=== PATIENT | female | born 1940 | race Caucasian/White ===

== ENCOUNTER 2019-12-19 09:15 | Emergency (ER) | payer MEDICARE, OTHER ==
--- NOTE | 2019-12-19 09:51 | RAD ---
EXAM: Single view of the chest HISTORY: Dyspnea and tachycardia COMPARISON: None FINDINGS: Single view of the chest shows a normal sized cardiomediastinal silhouette. There is no manish dence of consolidation, mass, or pleural effusion. The bones are unremarkable. IMPRESSION: No evidence of acute cardiopulmonary disease
[2019-12-19] MEDS ORDERED: Iopamidol 370 76% 125 ML VIAL FS ONE (09:57)
[2019-12-19 09:58] LABS: #Basophils 0.1 thou/uL (0.0-0.2); #Eosinphils 0.1 thou/uL (0.0-0.7); #Lymphocytes 1.5 thou/uL (1.20-3.40); #Monocytes 0.7 thou/uL (0.11-0.59); #Neutrophils 6.3 thou/uL (1.40-6.50); %Basophils 0.7 % (0.0-1.0); %Eosinophils 1.2 % (0.0-10.0); %Lymphocytes 17.2 % (21.0-51.0); %Monocytes 7.6 % (0.0-10.0); %Neutrophils 73.4 % (42.0-75.0); Hemoglobin 9.3 g/dL (12.0-16.0); Mean Corpuscular HGB CONC 31.6 g/dL (32.0-36.0); Mean Corpuscular Hemoglobin 28.2 pg (27.0-31.0); Mean Corpuscular Volume 89.4 fL (78.0-98.0); Mean Platelet Volume 8.4 fL (7.4-10.4); Platelet Count 302 thou/uL (130-400); RBC Distribution Width 12.7 % (11.5-14.5); Red Blood Cell (RBC) Count 3.28 mill/uL (4.20-5.40); White Blood Cell (WBC) Count 8.6 thou/uL (4.8-10.8)
[2019-12-19 10:11] LABS: ALT (SGPT) 17 U/L (8-55); AST (SGOT) 15 U/L (5-34); Alkaline Phosphatase 78 U/L (40-110); Anion Gap 17 mmol/L (10-20); BUN (Urea Nitrogen) 17 mg/dL (9.8-20.1); Bilirubin, Total 0.6 mg/dL (0.2-1.2); CK (CPK) 58 U/L (29-168); Calc. Creatinine Clearance 0 mL/min (70-130); Calcium 8.8 mg/dL (7.8-10.44); Carbon Dioxide 21 mmol/L (23-31); Chloride 101 mmol/L (98-107); Estimated GFR-MDRD 81; Globulin 2.6 g/dL (2.4-3.5); Glucose 109 mg/dL (83-110); Potassium 3.6 mmol/L (3.5-5.1); Protein, Total 6.6 g/dL (6.0-8.3); Sodium 135 mmol/L (136-145)
[2019-12-19 10:13] LABS: CKMB 1.4 ng/mL (0-6.6)
[2019-12-19] MEDS ORDERED: Sodium Chloride 0.9% 1,000 ML ONE (10:14)
[2019-12-19 10:30] LABS: D-Dimer Test 1.46 *mcg/mL (0.27-0.43)
[2019-12-19 10:31] LABS: PTT 23.8 SEC (22.9-36.1); Prothrombin Time 13.2 SEC (12.0-14.7)
--- NOTE | 2019-12-19 11:50 | CT ---
CT PULMONARY ANGIOGRAM WITH IV CONTRAST AND 3-D POSTPROCESSING: HISTORY:Dyspnea, elevated d-dimer FINDINGS: There is good contrast opacification of the pulmonary arterial vasculature without filling defects to suggest pulmonary embolism. The thoracic aorta is well opacified without aneurysm or dissection. No pleural or pericardial effusions are seen. No pneumothoraces are seen. There is scarring in the kristen ng apices bilaterally calcified pleural plaques. There is a 2 cm focal area of nodular consolidation in the superior segment of the right lower lobe. There are degenerative changes in the spine. Upper abdominal tomograms are unremarkable.. IMPRESSION: No CT evidence of pulmonary embolism. A follow-up CT scan without IV contrast is recommended in 4-6 weeks after course of antibiotics to mo nitor the finding in the superior segment of the right lower lobe.
[2019-12-19] MEDS ORDERED: Sodium Chloride 0.9% 250 ML 250 ML ONE (12:32)
[2019-12-19] MEDS ORDERED: cefTRIAXone\\ROCEPHIN 1 GM VIAL ONE (12:32)
[2019-12-19] MEDS ORDERED: Sodium Chloride 0.9% 100 ML ONE (12:32)
[2019-12-19] MEDS ORDERED: Azithromycin 500 MG VIAL ONE (12:32)
[2019-12-19 12:54] LABS: #Basophils 0.1 thou/uL (0.0-0.2); #Eosinphils 0.1 thou/uL (0.0-0.7); #Lymphocytes 1.2 thou/uL (1.20-3.40); #Monocytes 0.5 thou/uL (0.11-0.59); #Neutrophils 4.6 thou/uL (1.40-6.50); %Eosinophils 1.4 % (0.0-10.0); %Lymphocytes 18.3 % (21.0-51.0); %Monocytes 8.1 % (0.0-10.0); %Neutrophils 71.2 % (42.0-75.0); Hemoglobin 8.3 g/dL (12.0-16.0); Mean Corpuscular HGB CONC 31.7 g/dL (32.0-36.0); Mean Corpuscular Hemoglobin 28.6 pg (27.0-31.0); Mean Corpuscular Volume 90.2 fL (78.0-98.0); Mean Platelet Volume 8.2 fL (7.4-10.4); Platelet Count 247 thou/uL (130-400); RBC Distribution Width 12.7 % (11.5-14.5); Red Blood Cell (RBC) Count 2.89 mill/uL (4.20-5.40); White Blood Cell (WBC) Count 6.5 thou/uL (4.8-10.8)
== END 2019-12-19 14:42 | disposition short-term general hospital (02) ==
LOC: MADERS 09:15
DX: J18.9 Pneumonia, unspecified organism (principal); D64.9 Anemia, unspecified; I25.10 Atherosclerotic heart disease of native coronary artery without angina pectoris; I11.0 Hypertensive heart disease with heart failure; I50.9 Heart failure, unspecified; E78.5 Hyperlipidemia, unspecified; Z79.899 Other long term (current) drug therapy; Z79.82 Long term (current) use of aspirin
CPT/HCPCS: 71045; 71275; 80053; 82550; 82553; 83880; 84484; 85025; 85379; 85610; 85730; 87040; 93005; 94760; 96361; 96365; J0456; J0696; J3490; J7050; J7620; Q9967

== ENCOUNTER 2020-01-18 07:49 | Outpatient (CLI) | payer MEDICARE, OTHER ==
--- NOTE | 2020-01-18 09:30 | CT ---
CHEST CT WITHOUT CONTRAST: HISTORY: Right lower lobe pneumonia. COMPARISON: CT angiogram chest 12/19/2019. FINDINGS: No evidence of lower neck or axillary lymphadenopathy. Limited evaluation the mediastinum by the absence of IV contrast. No mass, lymphadenopathy or hematom a. Heart: No evidence of cardiomegaly. No significant pericardial fluid. Scattered coronary disease. Aorta: Scattered atherosclerosis. No aneurysm. Upper abdomen: Grossly no abnormality. Trachea and central bronchi: Patent. Pleural spaces: No pleural effusion. No pneumothorax. Lungs: Minimal thickening of the left and right major fissure. Minimal pleural-based opacity involvin g the lung apices, suggesting a chronic process. Masses and nodules: Right lung: No suspicious masses or nodules. Stable pleural-based opacity measuring 1.4 cm, near the right lung apex. Redemonstration of a pleural-based opacity along the superior segment of the right lower lobe. Opacity has decreased in size. The solid component measures 0.8 x 0.7 cm. Previousl y, this lesion measured 0.8 x 1.9 cm. Left lung: No suspicious masses or nodules. Osseous structures: No acute abnormality. IMPRESSION: Persistent pleural-based opacity involving the superior segment of the right lower lobe. Based on the sagittal images, density has decreased in size. Additionally, axial images demonstrate decreased prominence. The more solid component measures 0.7 x 0.8 cm. Previously, this opacity measured 1.9 x 0 .8 cm. Follow-up CT in 6 months is recommended. Transcribed Date/Time: 01/18/2020 9:37 AM
== END 2020-01-18 07:50 | disposition home or self-care (01) ==
LOC: MADCT 07:49
PROVIDERS: ATTEND Family Medicine
DX: J18.9 Pneumonia, unspecified organism (principal); R91.8 Other nonspecific abnormal finding of lung field
CPT/HCPCS: 71250

== ENCOUNTER 2020-07-18 08:57 | Outpatient (CLI) | payer MEDICARE, OTHER ==
[2020-07-18 09:14] LABS: #Basophils 0.1 thou/uL (0.0-0.2); #Eosinphils 0.1 thou/uL (0.0-0.7); #Lymphocytes 1.6 thou/uL (1.20-3.40); #Monocytes 0.5 thou/uL (0.11-0.59); #Neutrophils 3.3 thou/uL (1.40-6.50); %Basophils 1.1 % (0.0-1.0); %Eosinophils 2.1 % (0.0-10.0); %Lymphocytes 28.9 % (21.0-51.0); %Monocytes 8.1 % (0.0-10.0); %Neutrophils 59.8 % (42.0-75.0); Mean Corpuscular HGB CONC 31.8 g/dL (32.0-36.0); Mean Corpuscular Hemoglobin 28.6 pg (27.0-31.0); Mean Corpuscular Volume 89.8 fL (78.0-98.0); Mean Platelet Volume 9.2 fL (7.4-10.4); Platelet Count 190 thou/uL (130-400); RBC Distribution Width 11.6 % (11.5-14.5); Red Blood Cell (RBC) Count 4.56 mill/uL (4.20-5.40); White Blood Cell (WBC) Count 5.5 thou/uL (4.8-10.8)
[2020-07-18 09:33] LABS: ALT (SGPT) 24 U/L (8-55); AST (SGOT) 21 U/L (5-34); Albumin 4.2 g/dL (3.4-4.8); Alkaline Phosphatase 74 U/L (40-110); Anion Gap 14 mmol/L (10-20); BUN (Urea Nitrogen) 13 mg/dL (9.8-20.1); Bilirubin, Total 0.4 mg/dL (0.2-1.2); Calc. Creatinine Clearance 0 mL/min (70-130); Calcium 9.4 mg/dL (7.8-10.44); Carbon Dioxide 22 mmol/L (23-31); Cardiac Risk 3.9 (Less than 4.5); Chloride 104 mmol/L (98-107); Cholesterol 171 mg/dl (< 200 Desired); Estimated GFR-MDRD 69; Globulin 3.1 g/dL (2.4-3.5); Glucose 96 mg/dL (83-110); HDL Cholesterol 44 mg/dL (>60 Neg Risk); LDL Cholesterol, Calculated 76 mg/dL; Potassium 4.4 mmol/L (3.5-5.1); Protein, Total 7.3 g/dL (6.0-8.3); Sodium 136 mmol/L (136-145); Triglycerides 256 mg/dL (Less than 150)
--- NOTE | 2020-07-18 09:42 | CT ---
CT CHEST WITHOUT CONTRAST: INDICATION: Followup pulmonary nodule. COMPARISON: Comparison is made to chest CT of 01/18/2020 and 12/19/2019. FINDINGS: A pleural-based density in the superior segment of the right lower lobe adjacent to the posterior ple ura and fissure is again seen. This small density continues to measure approximately 8 mm AP dimensi on in the axial plane. It appears stable in appearance when compared to the exam dating back to 12/19. There is apical pleural thickening posteriorly on both sides with mild pleural calcification in the a pices which appears stable. No infiltrate. There is mild stranding in the anterior lower lungs and posterior lower lobes which appear stable. Mediastinum unremarkable. Upper abdomen unremarkable. O sseous structures unremarkable. IMPRESSION: The pleural-based opacity seen posteriorly in the superior segment of the right upper lobe appears st able from prior studies. Recommend repeat noncontrast chest CT in 6 months for continued surveillance. POS: AGW
== END 2020-07-18 08:58 | disposition home or self-care (01) ==
LOC: MADLAB 08:57
PROVIDERS: ATTEND Family Medicine
DX: R91.8 Other nonspecific abnormal finding of lung field (principal); E78.2 Mixed hyperlipidemia; E55.9 Vitamin D deficiency, unspecified; I50.32 Chronic diastolic (congestive) heart failure; K21.9 Gastro-esophageal reflux disease without esophagitis
CPT/HCPCS: 36415; 71250; 80053; 80061; 82306; 85025

== ENCOUNTER 2020-08-14 14:12 | Outpatient (CLI) | payer MEDICARE, OTHER ==
--- NOTE | 2020-08-14 14:29 | RAD ---
Exam: XR Shoulder Lt 3 View STANDARD HISTORY: Left anterior shoulder pain. COMPARISON: None FINDINGS: No acute fracture, dislocation, or other acute osseous abnormality is identified. Calcified left apical pleural thickening is seen. Vascular calcifications are seen in the thoracic ao rta. IMPRESSION: No acute osseous abnormality is identified.
== END 2020-08-14 14:13 | disposition home or self-care (01) ==
LOC: MADRAD 14:12
PROVIDERS: ATTEND Family Medicine
DX: M25.512 Pain in left shoulder (principal)

== ENCOUNTER 2020-09-25 16:31 | Outpatient (CLI) | payer MEDICARE, OTHER ==
--- NOTE | 2020-09-25 17:17 | RAD ---
TWO VIEW CHEST: 09/25/20 HISTORY: Dyspnea and chest pain. COMPARISON: 12/19/19 Lung young appear clear. No infiltrate or vascular congestion. Heart and mediastinum unremarkable. IMPRESSION: No acute process identified. POS: AGW
== END 2020-09-25 16:32 | disposition home or self-care (01) ==
LOC: MADRAD 16:31
PROVIDERS: ATTEND Family Medicine
DX: R07.89 Other chest pain (principal); R06.02 Shortness of breath; R53.83 Other fatigue
CPT/HCPCS: 71046; 93005; 93010

== ENCOUNTER 2020-09-25 16:43 | Outpatient (CLI) | payer MEDICARE, OTHER ==
[2020-09-25 16:53] LABS: #Basophils 0.1 thou/uL (0.0-0.2); #Eosinphils 0.3 thou/uL (0.0-0.7); #Lymphocytes 1.2 thou/uL (1.20-3.40); #Monocytes 0.5 thou/uL (0.11-0.59); %Basophils 1.4 % (0.0-1.0); %Eosinophils 5.6 % (0.0-10.0); %Lymphocytes 23.6 % (21.0-51.0); %Monocytes 10.4 % (0.0-10.0); %Neutrophils 58.9 % (42.0-75.0); Hemoglobin 13.3 g/dL (12.0-16.0); Mean Corpuscular HGB CONC 32.6 g/dL (32.0-36.0); Mean Corpuscular Hemoglobin 29.2 pg (27.0-31.0); Mean Corpuscular Volume 89.7 fL (78.0-98.0); Mean Platelet Volume 9.8 fL (7.4-10.4); Platelet Count 195 thou/uL (130-400); RBC Distribution Width 11.5 % (11.5-14.5); Red Blood Cell (RBC) Count 4.56 mill/uL (4.20-5.40); White Blood Cell (WBC) Count 5.1 thou/uL (4.8-10.8)
[2020-09-25 17:10] LABS: ALT (SGPT) 24 U/L (8-55); AST (SGOT) 19 U/L (5-34); Albumin 4.3 g/dL (3.4-4.8); Alkaline Phosphatase 80 U/L (40-110); Anion Gap 18 mmol/L (10-20); BUN (Urea Nitrogen) 10 mg/dL (9.8-20.1); Bilirubin, Total 0.2 mg/dL (0.2-1.2); Calc. Creatinine Clearance 0 mL/min (70-130); Calcium 10.2 mg/dL (7.8-10.44); Carbon Dioxide 23 mmol/L (23-31); Chloride 101 mmol/L (98-107); Estimated GFR-MDRD 66; Globulin 3.3 g/dL (2.4-3.5); Glucose 79 mg/dL (83-110); Potassium 4.5 mmol/L (3.5-5.1); Protein, Total 7.6 g/dL (6.0-8.3); Sodium 137 mmol/L (136-145)
[2020-09-25 17:12] LABS: CKMB 1.6 ng/mL (0-6.6); Troponin I Less than 0.010 ng/mL (< 0.028)
== END 2020-09-25 16:44 | disposition home or self-care (01) ==
LOC: MADLAB 16:43
PROVIDERS: ATTEND Family Medicine
DX: R53.83 Other fatigue (principal); R07.89 Other chest pain; R06.02 Shortness of breath
CPT/HCPCS: 36415; 80053; 82553; 84443; 84484; 85025

== ENCOUNTER 2020-11-30 08:07 | Emergency (ER) | payer MEDICARE, OTHER ==
[2020-11-30 08:49] LABS: #Basophils 0.1 thou/uL (0.0-0.2); #Eosinphils 0.1 thou/uL (0.0-0.7); #Lymphocytes 1.2 thou/uL (1.20-3.40); #Monocytes 0.6 thou/uL (0.11-0.59); #Neutrophils 5.6 thou/uL (1.40-6.50); %Basophils 1.1 % (0.0-1.0); %Lymphocytes 15.5 % (21.0-51.0); %Monocytes 7.9 % (0.0-10.0); %Neutrophils 73.6 % (42.0-75.0); Hemoglobin 12.3 g/dL (12.0-16.0); Mean Corpuscular HGB CONC 33.3 g/dL (32.0-36.0); Mean Corpuscular Hemoglobin 28.8 pg (27.0-31.0); Mean Corpuscular Volume 86.3 fL (78.0-98.0); Mean Platelet Volume 8.9 fL (7.4-10.4); Platelet Count 221 thou/uL (130-400); RBC Distribution Width 12.3 % (11.5-14.5); Red Blood Cell (RBC) Count 4.27 mill/uL (4.20-5.40); White Blood Cell (WBC) Count 7.6 thou/uL (4.8-10.8)
[2020-11-30] MEDS ORDERED: Aspirin Chewable 81 MG TAB ONE (09:01)
[2020-11-30] MEDS ORDERED: Ondansetron PF 4 MG/2 ML Vial ONE (09:01)
--- NOTE | 2020-11-30 09:02 | RAD ---
2 views of the chest: 11/30/2020 COMPARISON: 09/25/2020 HISTORY: Dyspnea, chest tightness, fatigue FINDINGS: Increased linear interstitial density noted with pulmonary hyperinflation, stable when comp ared to the prior examination, suggesting COPD in the proper clinical setting. There is atherosclerotic calcification of the aortic arch. No pneumothorax or pleural fluid is seen a nd there is no focal consolidation or alveolar edema. IMPRESSION: Stable appearance of the chest as detailed above.
[2020-11-30 09:05] LABS: ALT (SGPT) 20 U/L (8-55); AST (SGOT) 21 U/L (5-34); Albumin 4.1 g/dL (3.4-4.8); Alkaline Phosphatase 70 U/L (40-110); Anion Gap 15 mmol/L (10-20); BUN (Urea Nitrogen) 19 mg/dL (9.8-20.1); Bilirubin, Total 0.4 mg/dL (0.2-1.2); Calc. Creatinine Clearance 0 mL/min (70-130); Calcium 8.6 mg/dL (7.8-10.44); Carbon Dioxide 21 mmol/L (23-31); Chloride 102 mmol/L (98-107); Globulin 2.5 g/dL (2.4-3.5); Glucose 99 mg/dL (83-110); Lipase 11 U/L (8-78); Potassium 4.2 mmol/L (3.5-5.1); Protein, Total 6.6 g/dL (5.8-8.1); Sodium 134 mmol/L (136-145)
[2020-11-30] MEDS ORDERED: Iopamidol 370 76% 100 ML VIAL ONE (10:04)
--- NOTE | 2020-11-30 11:31 | CT ---
EXAM: CT pulmonary angiogram with IV contrast and 3-D MIP reconstructions PROVIDED CLINICAL HISTORY: Chest pain and shortness of breath COMPARISON: 12/19/2019 FINDINGS: There is no evidence for central or segmental pulmonary embolus. The lungs are free of significant opacity. No pleural fluid or pneumothorax apparent. No evidence for thoracic lymph node enlargement. The airway appears patent and of normal caliber. The visualized portions of the upper abdomen demonstrate no acute findings. The osseous structures demonstrate no concerning lytic or blastic lesions. IMPRESSION: No evidence for central or segmental pulmonary embolus.
[2020-11-30 12:31] LABS: CKMB 1.3 ng/mL (0-6.6)
== END 2020-11-30 18:15 | disposition short-term general hospital (02) ==
LOC: MADERS 08:07
DX: I21.4 Non-ST elevation (NSTEMI) myocardial infarction (principal); I25.10 Atherosclerotic heart disease of native coronary artery without angina pectoris; I10 Essential (primary) hypertension; E78.5 Hyperlipidemia, unspecified; Z79.899 Other long term (current) drug therapy; Z79.82 Long term (current) use of aspirin
CPT/HCPCS: 71046; 71275; 80053; 82553; 83690; 83880; 84484; 85025; 85379; 93005; 96374; J2405; Q9967

== ENCOUNTER 2021-02-20 12:13 | Outpatient (CLI) | payer MEDICARE, OTHER | END 2021-02-20 12:14 | disposition home or self-care (01) | LOC: MADCT 12:13 | PROVIDERS: ATTEND Family Medicine | DX: R91.8 Other nonspecific abnormal finding of lung field (principal); I25.10 Atherosclerotic heart disease of native coronary artery without angina pectoris | CPT/HCPCS: 71250 ==

== ENCOUNTER 2022-03-07 07:57 | Outpatient (CLI) | payer MEDICARE, OTHER ==
[2022-03-07 08:28] LABS: Bilirubin Negative (Negative); Blood, Urine Trace (Negative); Clarity Clear (Clear); Glucose, Urine (Dipstick) Negative (Negative); Ketone, Urine Negative (Negative); Leukocyte Negative (Negative); Nitrite Positive (Negative); Protein, Urine (Dipstick) Negative (Neg-Trace); Urobilinogen 0.2 mg/dL (Less than 2)
[2022-03-07 08:57] LABS: Bacteria/HPF 1+ HPF (None Seen); RBC/HPF 0-3 HPF (0-3); Squamous Epithelial 0-3 HPF (0-3)
[2022-03-07 08:59] LABS: #Basophils 0.1 thou/uL (0.0-0.2); #Eosinphils 0.2 thou/uL (0.0-0.7); #Lymphocytes 1.1 thou/uL (1.20-3.40); #Monocytes 0.4 thou/uL (0.11-0.59); #Neutrophils 2.9 thou/uL (1.40-6.50); %Basophils 1.4 % (0.0-1.0); %Eosinophils 4.3 % (0.0-10.0); %Lymphocytes 24.3 % (21.0-51.0); %Monocytes 8.4 % (0.0-10.0); %Neutrophils 61.6 % (42.0-75.0); Hemoglobin 13.2 g/dL (12.0-16.0); Mean Corpuscular HGB CONC 32.3 g/dL (32.0-36.0); Mean Corpuscular Hemoglobin 28.9 pg (27.0-31.0); Mean Corpuscular Volume 89.5 fL (78.0-98.0); Mean Platelet Volume 10.5 fL (7.4-10.4); Platelet Count 178 thou/uL (130-400); Red Blood Cell (RBC) Count 4.59 mill/uL (4.20-5.40); White Blood Cell (WBC) Count 4.7 thou/uL (4.8-10.8)
[2022-03-07 09:06] LABS: ALT (SGPT) 19 U/L (8-55); AST (SGOT) 21 U/L (5-34); Albumin 4.3 g/dL (3.4-4.8); Alkaline Phosphatase 65 U/L (40-110); Anion Gap 15 mmol/L (10-20); BUN (Urea Nitrogen) 10 mg/dL (9.8-20.1); Bilirubin, Total 0.6 mg/dL (0.2-1.2); Calc. Creatinine Clearance 0 mL/min (70-130); Calcium 9.3 mg/dL (7.8-10.44); Carbon Dioxide 25 mmol/L (23-31); Cardiac Risk 3.8 (Less than 4.5); Chloride 98 mmol/L (98-107); Cholesterol 184 mg/dl (< 200 Desired); Globulin 3.1 g/dL (2.4-3.5); Glucose 89 mg/dL (83-110); HDL Cholesterol 48 mg/dL (>60 Neg Risk); LDL Cholesterol, Calculated 99 mg/dL; Potassium 4.4 mmol/L (3.5-5.1); Protein, Total 7.4 g/dL (5.8-8.1); Sodium 134 mmol/L (136-145); Triglycerides 186 mg/dL (Less than 150)
[2022-03-07 09:42] LABS: Thyroid Stimulating Hormone 3.6411 uIU/mL (0.35-4.94)
[2022-03-07 16:07] LABS: Vitamin D, 25 Hydroxy 83.7 ng/ml (> 30.0)
== END 2022-03-07 07:58 | disposition home or self-care (01) ==
LOC: MADRAD 07:57
PROVIDERS: ATTEND Family Medicine
DX: M25.552 Pain in left hip (principal); Z00.00 Encounter for general adult medical examination without abnormal findings; E55.9 Vitamin D deficiency, unspecified; E78.2 Mixed hyperlipidemia; N32.81 Overactive bladder; I11.0 Hypertensive heart disease with heart failure; I50.32 Chronic diastolic (congestive) heart failure
CPT/HCPCS: 36415; 80053; 80061; 81001; 82306; 84443; 85025

== ENCOUNTER 2022-05-30 11:39 | Outpatient (CLI) | payer MEDICARE, OTHER | END 2022-05-30 11:40 | disposition home or self-care (01) | LOC: MADRAD 11:39 | PROVIDERS: ATTEND Family Medicine | DX: M54.41 Lumbago with sciatica, right side (principal); M47.816 Spondylosis without myelopathy or radiculopathy, lumbar region; M41.9 Scoliosis, unspecified | CPT/HCPCS: 72100 ==

== ENCOUNTER 2022-08-08 07:04 | Emergency (ER) | payer MEDICARE, OTHER ==
[2022-08-08 07:54] LABS: Prothrombin Time 13.2 sec (12.0-14.7)
[2022-08-08 07:55] LABS: PTT 26.7 sec (22.9-36.1)
[2022-08-08] MEDS ORDERED: Pantoprazole 40 MG VIAL ONE (07:58)
[2022-08-08 08:03] LABS: Band 9 % (5-11); Hemoglobin 12.8 g/dL (12.0-16.0); Lymphocytes 9 % (21-51); MDiff Complete? YES; Mean Corpuscular HGB CONC 32.2 g/dL (32.0-36.0); Mean Corpuscular Volume 90.1 fL (78.0-98.0); Mean Platelet Volume 9.3 fL (7.4-10.4); Monocytes 1 % (0-10); Neutrophil 81 % (42-75); Platelet Count 198 thou/uL (130-400); RBC Distribution Width 11.4 % (11.5-14.5); Red Blood Cell (RBC) Count 4.42 mill/uL (4.20-5.40)
[2022-08-08 08:04] LABS: ALT (SGPT) 18 U/L (8-55); AST (SGOT) 25 U/L (5-34); Albumin 4.1 g/dL (3.4-4.8); Alkaline Phosphatase 60 U/L (40-110); Anion Gap 19 mmol/L (10-20); BUN (Urea Nitrogen) 16 mg/dL (9.8-20.1); Bilirubin, Total 0.4 mg/dL (0.2-1.2); Calc. Creatinine Clearance 0 mL/min (70-130); Calcium 10.1 mg/dL (7.8-10.44); Carbon Dioxide 18 mmol/L (23-31); Chloride 101 mmol/L (98-107); Estimated GFR 54; Globulin 3.3 g/dL (2.4-3.5); Glucose 122 mg/dL (83-110); Potassium 4.6 mmol/L (3.5-5.1); Protein, Total 7.4 g/dL (5.8-8.1); Sodium 133 mmol/L (136-145)
[2022-08-08] MEDS ORDERED: Sodium Chloride 0.9% 100 ML ONE (09:51)
[2022-08-08] MEDS ORDERED: Piperacillin/Tazobactam 4.5 GM VIAL ONE (09:51)
[2022-08-08 10:21] LABS: Lipase 11 U/L (8-78); Magnesium 1.7 mg/dL (1.6-2.6)
[2022-08-08] MEDS ORDERED: Iopamidol 370 76% 100 ML VIAL ONE (10:33)
== END 2022-08-08 12:07 | disposition short-term general hospital (02) ==
LOC: MADERS 07:04
DX: K52.9 Noninfective gastroenteritis and colitis, unspecified (principal); K92.1 Melena; A41.9 Sepsis, unspecified organism; I11.0 Hypertensive heart disease with heart failure; I50.9 Heart failure, unspecified; Z79.899 Other long term (current) drug therapy; Z79.82 Long term (current) use of aspirin
CPT/HCPCS: 36415; 71045; 74177; 80053; 82274; 83605; 83690; 83735; 85025; 85610; 85730; 86850; 86900; 86901; 87040; 93005; 96365; 96367; C9113; J2543; J3490; Q9967

== ENCOUNTER 2023-05-20 13:07 | Outpatient (CLI) | payer MEDICARE, OTHER | END 2023-05-20 13:08 | disposition home or self-care (01) | LOC: MADRAD 13:07 | PROVIDERS: ATTEND Physician Assistant | DX: M25.551 Pain in right hip (principal); M47.816 Spondylosis without myelopathy or radiculopathy, lumbar region; M46.1 Sacroiliitis, not elsewhere classified | CPT/HCPCS: 72100 ==

== ENCOUNTER 2024-04-12 00:48 | Emergency (ER) | payer MEDICARE, OTHER ==
[2024-04-12 01:11] LABS: #Basophils 0.1 thou/uL (0.0-0.2); #Eosinphils 0.3 thou/uL (0.0-0.7); #Lymphocytes 2.1 thou/uL (1.20-3.40); #Monocytes 0.8 thou/uL (0.11-0.59); #Neutrophils 3.7 thou/uL (1.40-6.50); %Basophils 1.3 % (0.0-1.0); %Eosinophils 3.7 % (0.0-10.0); %Lymphocytes 30.4 % (21.0-51.0); %Neutrophils 53.6 % (42.0-75.0); Hematocrit 39.8 % (36.0-47.0); Hemoglobin 12.6 g/dL (12.0-16.0); Mean Corpuscular HGB CONC 31.8 g/dL (32.0-36.0); Mean Corpuscular Volume 91.2 fl (78.0-98.0); Mean Platelet Volume 9.1 fL (7.4-10.4); Platelet Count 166 10x3/uL (130-400); RBC Distribution Width 12.5 % (11.5-14.5); Red Blood Cell (RBC) Count 4.36 mill/uL (4.20-5.40); White Blood Cell (WBC) Count 6.9 10x3/uL (4.8-10.8)
[2024-04-12 01:30] LABS: Troponin I Less than 0.010 ng/mL (< 0.028)
[2024-04-12 01:36] LABS: ALT (SGPT) 25 U/L (8-55); AST (SGOT) 22 U/L (5-34); Albumin 3.9 g/dL (3.4-4.8); Alkaline Phosphatase 64 U/L (40-110); Anion Gap 14 mmol/L (10-20); BUN (Urea Nitrogen) 13 mg/dL (9.8-20.1); Bilirubin, Total 0.4 mg/dL (0.2-1.2); Calc. Creatinine Clearance 0 mL/min (70-130); Calcium 9.4 mg/dL (7.8-10.44); Carbon Dioxide 21 mmol/L (23-31); Chloride 108 mmol/L (98-107); Estimated GFR 78; Globulin 2.6 g/dL (2.4-3.5); Glucose 107 mg/dL (83-110); Lipase 25 U/L (8-78); Magnesium 1.7 mg/dL (1.6-2.6); Potassium 4.1 mmol/L (3.5-5.1); Protein, Total 6.5 g/dL (5.8-8.1); Sodium 139 mmol/L (136-145)
[2024-04-12] MEDS ORDERED: Nitroglycerin 2% Ointment 1 INCH/1 GM Packet ONE (04:00)
[2024-04-12] MEDS ORDERED: Pantoprazole 40 MG VIAL ONE (04:30)
[2024-04-12 04:36] LABS: Troponin I Less than 0.010 ng/mL (< 0.028)
[2024-04-12] MEDS ORDERED: Iopamidol 370 76% 100 ML VIAL ONE (09:00)
== END 2024-04-12 05:01 | disposition short-term general hospital (02) ==
LOC: MADERS 00:48
DX: K20.90 Esophagitis, unspecified without bleeding (principal); T50.905A Adverse effect of unspecified drugs, medicaments and biological substances, initial encounter; T82.855A Stenosis of coronary artery stent, initial encounter; R10.9 Unspecified abdominal pain; I11.0 Hypertensive heart disease with heart failure; I50.9 Heart failure, unspecified; Z79.82 Long term (current) use of aspirin
CPT/HCPCS: 36415; 71045; 71275; 74174; 80053; 83605; 83690; 83735; 83880; 84484; 85025; 93005; 96374; C9113; Q9967

== ENCOUNTER 2024-10-29 09:46 | Emergency (ER) | payer MEDICARE, OTHER ==
[2024-10-29] MEDS ORDERED: Ibuprofen 600 MG TAB ONE (10:42)
[2024-10-29] MEDS ORDERED: predniSONE 20 MG TAB ONE (11:43)
== END 2024-10-29 12:12 | disposition home or self-care (01) ==
LOC: MADERS 09:46
DX: S29.012A Strain of muscle and tendon of back wall of thorax, initial encounter (principal); S29.011A Strain of muscle and tendon of front wall of thorax, initial encounter; K21.9 Gastro-esophageal reflux disease without esophagitis; I11.0 Hypertensive heart disease with heart failure; I50.9 Heart failure, unspecified; E78.5 Hyperlipidemia, unspecified; X50.0XXA Overexertion from strenuous movement or load, initial encounter; Z79.82 Long term (current) use of aspirin; Z79.899 Other long term (current) drug therapy
CPT/HCPCS: 71046; 72072; J7512

== ENCOUNTER 2025-09-07 08:23 | Outpatient (CLI) | payer MEDICARE, OTHER ==
[2025-09-07 08:58] LABS: Cardiac Risk 3.8 (Less than 4.5); Cholesterol 192.0 mg/dl (< 200 Desired); HDL Cholesterol 50.0 mg/dL (>60 Neg Risk); LDL Cholesterol, Calculated 98.0 mg/dL; Triglycerides 218.0 mg/dL (Less than 150)
== END 2025-09-07 08:24 | disposition home or self-care (01) ==
LOC: MADLAB 08:23
PROVIDERS: ATTEND Internal Medicine Cardiovascular Disease
DX: I25.10 Atherosclerotic heart disease of native coronary artery without angina pectoris (principal)
CPT/HCPCS: 36415; 80061

== ENCOUNTER 2025-10-16 09:57 | Outpatient (CLI) | payer MEDICARE, OTHER ==
[2025-10-16 10:18] LABS: #Basophils 0.1 thou/uL (0.0-0.2); #Eosinophils 0.2 thou/uL (0.0-0.7); #Lymphocytes 1.9 thou/uL (1.20-3.40); #Monocytes 0.5 thou/uL (0.11-0.59); #Neutrophils 4.6 thou/uL (1.40-6.50); %Basophils 1.1 % (0.0-1.0); %Eosinophils 3.2 % (0.0-10.0); %Lymphocytes 25.5 % (21.0-51.0); %Monocytes 7.2 % (0.0-10.0); %Neutrophils 63.1 % (42.0-75.0); Hematocrit 42.9 % (36.0-47.0); Hemoglobin 13.5 g/dL (12.0-16.0); Mean Corpuscular Hemoglobin 28.7 pg (27.0-31.0); Mean Corpuscular Volume 91.0 fl (78.0-98.0); Platelet Count 178 10x3/uL (130-400); Red Blood Cell (RBC) Count 4.71 mill/uL (4.20-5.40); White Blood Cell (WBC) Count 7.3 10x3/uL (4.8-10.8)
[2025-10-16 10:28] LABS: ALT (SGPT) 24 U/L (Less than 34); AST (SGOT) 29 U/L (11-34); Albumin 4.0 g/dL (3.1-4.5); Alkaline Phosphatase 54 U/L (40-110); Anion Gap 16 mmol/L (10-20); BUN (Urea Nitrogen) 12 mg/dL (9.8-20.1); Bilirubin, Total 0.6 mg/dL (0.3-1.2); Calc. Creatinine Clearance 0 mL/min (70-130); Calcium 9.5 mg/dL (7.8-10.44); Carbon Dioxide 22 mmol/L (23-31); Chloride 107 mmol/L (98-107); Globulin 3.0 g/dL (2.4-3.5); Glucose 94 mg/dL (83-110); Potassium 4.6 mmol/L (3.5-5.1); Sodium 140 mmol/L (136-145)
== END 2025-10-16 09:58 | disposition home or self-care (01) ==
LOC: MADLAB 09:57
PROVIDERS: ATTEND Internal Medicine Gastroenterology
DX: K55.039 Acute (reversible) ischemia of large intestine, extent unspecified (principal); D62 Acute posthemorrhagic anemia; R63.4 Abnormal weight loss; R93.5 Abnormal findings on diagnostic imaging of other abdominal regions, including retroperitoneum; R63.0 Anorexia
CPT/HCPCS: 36415; 80053; 84443; 85025